=== PATIENT | female | born 1950 | race Caucasian/White ===

== ENCOUNTER → 2017-12-11 | Outpatient (CLI) | payer MEDICARE, OTHER | LOC: M PAIN 09:15 | DX: M79.1 Myalgia (principal); M54.5 Low back pain; M47.816 Spondylosis without myelopathy or radiculopathy, lumbar region; M47.814 Spondylosis without myelopathy or radiculopathy, thoracic region; E11.9 Type 2 diabetes mellitus without complications; I10 Essential (primary) hypertension; E78.00 Pure hypercholesterolemia, unspecified; M19.90 Unspecified osteoarthritis, unspecified site; Z79.84 Long term (current) use of oral hypoglycemic drugs; Z79.899 Other long term (current) drug therapy; Z91.013 Allergy to seafood; Z87.891 Personal history of nicotine dependence | CPT/HCPCS: G0463 ==

== ENCOUNTER → 2017-12-18 | Outpatient (CLI) | payer MEDICARE, OTHER ==
[~2017-12-18] MED LIST: BUPIVACAINE HCL 0.25% 10 ML VIAL As Ordered; BUPIVACAINE HCL 0.25% 30 ML VIAL As Ordered; TRIAMCINOLONE ACETONIDE SUSP 40 MG/ML VIAL (J3301) As Ordered
== END ==
LOC: M PAIN 11:30
DX: G89.29 Other chronic pain (principal); M79.1 Myalgia; I10 Essential (primary) hypertension; E78.00 Pure hypercholesterolemia, unspecified; E11.9 Type 2 diabetes mellitus without complications; Z79.84 Long term (current) use of oral hypoglycemic drugs; Z79.899 Other long term (current) drug therapy; Z91.013 Allergy to seafood; Z90.710 Acquired absence of both cervix and uterus; Z87.891 Personal history of nicotine dependence
CPT/HCPCS: J3301

== ENCOUNTER → 2017-12-27 | Outpatient (CLI) | payer MEDICARE, OTHER | LOC: M PAIN 10:30 | DX: M47.27 Other spondylosis with radiculopathy, lumbosacral region (principal); E11.9 Type 2 diabetes mellitus without complications; I10 Essential (primary) hypertension; E78.00 Pure hypercholesterolemia, unspecified; M19.90 Unspecified osteoarthritis, unspecified site; Z91.013 Allergy to seafood; E66.01 Morbid (severe) obesity due to excess calories; Z68.41 Body mass index [BMI] 40.0-44.9, adult; Z79.899 Other long term (current) drug therapy; Z87.891 Personal history of nicotine dependence | CPT/HCPCS: G0463 ==

== ENCOUNTER → 2018-01-15 | Outpatient (CLI) | payer MEDICARE, OTHER ==
[~2018-01-15] MED LIST changes: -BUPIVACAINE HCL 0.25% 10 ML VIAL As Ordered; +ISOVUE-M 300 61% 15ML VIAL (Q9967) As Ordered; +LIDOCAINE 1% SDV INJ 30 ML VIAL As Ordered
== END ==
LOC: M PAIN 08:30
DX: G89.29 Other chronic pain (principal); M47.816 Spondylosis without myelopathy or radiculopathy, lumbar region; M47.817 Spondylosis without myelopathy or radiculopathy, lumbosacral region; E11.9 Type 2 diabetes mellitus without complications; I10 Essential (primary) hypertension; E78.00 Pure hypercholesterolemia, unspecified; M19.90 Unspecified osteoarthritis, unspecified site; Z79.899 Other long term (current) drug therapy; Z91.013 Allergy to seafood; Z87.891 Personal history of nicotine dependence
CPT/HCPCS: J3301

== ENCOUNTER → 2018-01-29 | Outpatient (CLI) | payer MEDICARE, OTHER | LOC: M PAIN 09:00 | DX: M47.27 Other spondylosis with radiculopathy, lumbosacral region (principal); I10 Essential (primary) hypertension; E78.00 Pure hypercholesterolemia, unspecified; E11.9 Type 2 diabetes mellitus without complications; M19.90 Unspecified osteoarthritis, unspecified site; Z87.891 Personal history of nicotine dependence; Z79.899 Other long term (current) drug therapy; Z79.84 Long term (current) use of oral hypoglycemic drugs; Z91.013 Allergy to seafood | CPT/HCPCS: G0463 ==

== ENCOUNTER → 2018-04-02 | Outpatient (CLI) | payer MEDICARE, OTHER ==
[~2018-04-02] MED LIST changes: +ATEN25TA PO; +ATOR1TAB19 PO; -BUPIVACAINE HCL 0.25% 30 ML VIAL As Ordered; +FELO5TAB PO; +GLIM2TAB PO; -ISOVUE-M 300 61% 15ML VIAL (Q9967) As Ordered; -LIDOCAINE 1% SDV INJ 30 ML VIAL As Ordered; +LISI20TA PO; +MELO7.5T7 PO; +NATE120T4 PO; +OMEP20CA3 PO; -TRIAMCINOLONE ACETONIDE SUSP 40 MG/ML VIAL (J3301) As Ordered
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
== END ==
LOC: M PAIN 09:30
PROVIDERS: ATTEND Nurse Practitioner Family
DX: M47.27 Other spondylosis with radiculopathy, lumbosacral region (principal); G89.29 Other chronic pain; E11.9 Type 2 diabetes mellitus without complications; I12.9 Hypertensive chronic kidney disease with stage 1 through stage 4 chronic kidney disease, or unspecified chronic kidney disease; E78.00 Pure hypercholesterolemia, unspecified; M19.90 Unspecified osteoarthritis, unspecified site; E66.01 Morbid (severe) obesity due to excess calories; Z68.41 Body mass index [BMI] 40.0-44.9, adult; Z79.899 Other long term (current) drug therapy; Z91.013 Allergy to seafood; Z87.891 Personal history of nicotine dependence

== ENCOUNTER → 2018-07-31 | Outpatient (CLI) | payer MEDICARE, OTHER ==
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
== END ==
LOC: M PAIN 08:30
PROVIDERS: ATTEND Nurse Practitioner Family
DX: M48.061 Spinal stenosis, lumbar region without neurogenic claudication (principal); G89.29 Other chronic pain; I10 Essential (primary) hypertension; E78.00 Pure hypercholesterolemia, unspecified; E11.9 Type 2 diabetes mellitus without complications; M19.90 Unspecified osteoarthritis, unspecified site; Z87.891 Personal history of nicotine dependence; Z91.013 Allergy to seafood; E66.01 Morbid (severe) obesity due to excess calories; Z68.41 Body mass index [BMI] 40.0-44.9, adult; Z79.1 Long term (current) use of non-steroidal anti-inflammatories (NSAID); Z79.84 Long term (current) use of oral hypoglycemic drugs; Z79.899 Other long term (current) drug therapy

== ENCOUNTER → 2018-08-05 | Outpatient (CLI) | payer OTHER, MEDICARE ==
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
== END ==
LOC: M PAIN 09:00
PROVIDERS: ATTEND Nurse Practitioner Family
DX: M79.12 Myalgia of auxiliary muscles, head and neck (principal); G89.29 Other chronic pain; E11.9 Type 2 diabetes mellitus without complications; I10 Essential (primary) hypertension; E78.00 Pure hypercholesterolemia, unspecified; M19.90 Unspecified osteoarthritis, unspecified site; E66.01 Morbid (severe) obesity due to excess calories; Z68.41 Body mass index [BMI] 40.0-44.9, adult; Z79.899 Other long term (current) drug therapy; Z91.013 Allergy to seafood; Z87.891 Personal history of nicotine dependence; Z86.19 Personal history of other infectious and parasitic diseases

== ENCOUNTER → 2018-09-09 | Outpatient (CLI) | payer OTHER, MEDICARE ==
[~2018-09-09] MED LIST changes: +BUPIVACAINE HCL 0.25% 30 ML VIAL As Ordered ONE; +ISOVUE-M 300 61% 15ML VIAL (Q9967) As Ordered ONE; +LIDOCAINE 1% SDV INJ 30 ML VIAL As Ordered ONE; -OMEP20CA3 PO; +OMEP20CA4 PO; +TRIAMCINOLONE ACETONIDE SUSP 40 MG/ML VIAL (J3301) As Ordered ONE
--- NOTE | 2018-09-09 12:11 | REP ---
C-ARM VIEWS, LUMBAR SPINE: CLINICAL HISTORY: Pain . 4 C-arm views of the lumbar spine are performed during facet injection by Dr. Martines. [place] are seen along the lower facets and a small amount of contrast is injected. 32 seconds fluoroscopy time utilized. Electronically Signed by Aime English MD 09/09/2018 07:34 P
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
== END ==
LOC: M PAIN 10:45
PROVIDERS: ATTEND Anesthesiology
DX: M47.816 Spondylosis without myelopathy or radiculopathy, lumbar region (principal); M47.817 Spondylosis without myelopathy or radiculopathy, lumbosacral region; I10 Essential (primary) hypertension; E78.00 Pure hypercholesterolemia, unspecified; E11.9 Type 2 diabetes mellitus without complications; M19.90 Unspecified osteoarthritis, unspecified site; Z98.41 Cataract extraction status, right eye; Z98.42 Cataract extraction status, left eye; Z87.891 Personal history of nicotine dependence; Z79.1 Long term (current) use of non-steroidal anti-inflammatories (NSAID); Z79.891 Long term (current) use of opiate analgesic; Z79.899 Other long term (current) drug therapy; Z91.013 Allergy to seafood
CPT/HCPCS: 64493; 64494; J3301; Q9967

== ENCOUNTER → 2018-09-23 | Outpatient (CLI) | payer OTHER ==
[~2018-09-23] MED LIST changes: +BUPIVACAINE HCL 0.25% 10 ML VIAL As Ordered ONE; -ISOVUE-M 300 61% 15ML VIAL (Q9967) As Ordered ONE; -LIDOCAINE 1% SDV INJ 30 ML VIAL As Ordered ONE; +OMEP20CA3 PO; -OMEP20CA4 PO
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
== END ==
LOC: M PAIN 11:15
PROVIDERS: ATTEND Anesthesiology
DX: M79.18 Myalgia, other site (principal); I10 Essential (primary) hypertension; E78.00 Pure hypercholesterolemia, unspecified; E11.9 Type 2 diabetes mellitus without complications; M19.90 Unspecified osteoarthritis, unspecified site; M47.816 Spondylosis without myelopathy or radiculopathy, lumbar region; M47.814 Spondylosis without myelopathy or radiculopathy, thoracic region; G89.29 Other chronic pain; Z98.41 Cataract extraction status, right eye; Z98.42 Cataract extraction status, left eye; Z79.891 Long term (current) use of opiate analgesic; Z79.899 Other long term (current) drug therapy; Z91.013 Allergy to seafood
CPT/HCPCS: 20552; J3301

== ENCOUNTER → 2018-11-12 | Outpatient (CLI) | payer OTHER ==
[~2018-11-12] MED LIST changes: -BUPIVACAINE HCL 0.25% 10 ML VIAL As Ordered ONE; -BUPIVACAINE HCL 0.25% 30 ML VIAL As Ordered ONE; -LISI20TA PO; +LISI20TA18 PO; -OMEP20CA3 PO; +OMEP20CA4 PO; -TRIAMCINOLONE ACETONIDE SUSP 40 MG/ML VIAL (J3301) As Ordered ONE
== END ==
LOC: M PAIN 09:45
PROVIDERS: ATTEND Nurse Practitioner Family
DX: M79.18 Myalgia, other site (principal); I10 Essential (primary) hypertension; E78.00 Pure hypercholesterolemia, unspecified; E11.9 Type 2 diabetes mellitus without complications; M19.90 Unspecified osteoarthritis, unspecified site; Z87.891 Personal history of nicotine dependence; Z91.013 Allergy to seafood; E66.01 Morbid (severe) obesity due to excess calories; Z68.41 Body mass index [BMI] 40.0-44.9, adult; Z79.899 Other long term (current) drug therapy

== ENCOUNTER → 2018-11-25 | Outpatient (CLI) | payer MEDICARE, OTHER ==
[~2018-11-25] MED LIST changes: +BUPIVACAINE HCL 0.25% 30 ML VIAL As Ordered ONE; -FELO5TAB PO; +FELO5TAB26 PO; -GLIM2TAB PO; +GLIM2TAB4 PO; +ISOVUE-M 200 41% 20ML VIAL (Q9966) As Ordered ONE; +LIDOCAINE 1% SDV INJ 30 ML VIAL As Ordered ONE; -LISI20TA18 PO; +LISI20TA19 PO; +OMEP1CAP73 PO; -OMEP20CA4 PO
--- NOTE | 2018-11-25 18:52 | REP ---
FLUOROSCOPIC GUIDANCE FOR BILATERAL LUMBAR FACET BLOCK: 11/25/2018. Clinical history: Low back pain. Findings: Two views from C-arm fluoroscopy utilized by Dr. Miller of the pain clinic for this procedure. Single image for each projection showed needles at the three lowermost lumbar facet joints. Fluoroscopy time: 31 seconds. Electronically Signed by Gerardo Bonilla MD 11/25/2018 07:47 P
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
== END ==
LOC: M PAIN 10:00
PROVIDERS: ATTEND Anesthesiology
DX: G89.29 Other chronic pain (principal); M47.816 Spondylosis without myelopathy or radiculopathy, lumbar region; M47.817 Spondylosis without myelopathy or radiculopathy, lumbosacral region; M54.5 Low back pain; I10 Essential (primary) hypertension; Z79.899 Other long term (current) drug therapy; Z87.891 Personal history of nicotine dependence; Z91.013 Allergy to seafood
CPT/HCPCS: 64493; 64494; Q9966

== ENCOUNTER → 2018-12-12 | Outpatient (CLI) | payer MEDICARE, OTHER ==
[~2018-12-12] MED LIST changes: -BUPIVACAINE HCL 0.25% 30 ML VIAL As Ordered ONE; +FELO5TAB PO; -FELO5TAB26 PO; +GLIM2TAB PO; -GLIM2TAB4 PO; -ISOVUE-M 200 41% 20ML VIAL (Q9966) As Ordered ONE; -LIDOCAINE 1% SDV INJ 30 ML VIAL As Ordered ONE; -OMEP1CAP73 PO; +OMEP20CA4 PO
--- NOTE | 2018-12-27 01:59 | ECWPNPC ---
PATIENT NAME: ATN DIGGS : 1950 GENDER: FEMALE VISIT DATE: 12/12/2018 DISCHARGE DATE: 12/12/18 1103 VISIT LOCKED DATE TIME: PHYSICIAN: KAYLEE ARMSTRONG RESOURCE: KAYLEE ARMSTRONG REASON FOR APPOINTMENT 1. MEDICARE, POST PROCEDURE HISTORY OF PRESENT ILLNESS HISTORY OF PRESENT ILLNESS: HERE FOR F/U OF CHRONIC LBP.HAD BILAT L4/5-L5/S1 DIAGNOSTIC FACET BLOCK ON 11/25/18.REPORTING SIGNIFICANT REDUCTION IN PAIN,>80 % X10 HRS THEN PAIN RETURNED TO BASELINE.RATING PAIN VAS 5/10.USING TRAMADOL INFREQUENTLY FOR SEVERE PAIN. PAIN THE PATIENT DESCRIBES THE PAIN... THE PATIENT DESCRIBES THE PAIN... THE PATIENT DESCRIBES THE PAIN... FALL RISK SCREENING: SCREENING :NO FALLS REPORTED IN THE LAST YEAR CURRENT MEDICATIONS TAKING OMEPRAZOLE 20 MG CAPSULE DELAYED RELEASE 1 CAPSULE ORALLY ONCE A DAY TAKING GLIMEPIRIDE 4 MG TABLET 2 TABLET ORALLY DAILY, NOTES: 11/24/18 TAKING GABAPENTIN 300 MG CAPSULE 1 CAPSULE ORALLY TWICE DAILY TAKING ATORVASTATIN CALCIUM 10 MG TABLET 1 TABLET ORALLY BEFORE BEDTIME TAKING LABETALOL HCL 200 MG TABLET 1 TABLET ORALLY TWICE A DAY TAKING VALSARTAN-HYDROCHLOROTHIAZIDE 320-25 MG TABLET 1 TABLET ORALLY ONCE A DAY NOT-TAKING MELOXICAM 7.5 MG TABLET 1 TABLET ORALLY BID NOT-TAKING LOSARTAN POTASSIUM 100 MG TABLET 1 TABLET ORALLY BEFORE BEDTIME NOT-TAKING FELODIPINE ER 5 MG TABLET EXTENDED RELEASE 24 HOUR 1 TABLET ORALLY BEFORE BEDTIME NOT-TAKING TIZANIDINE HCL 4 MG TABLET 1 TABLET ORALLY BID NOT-TAKING ATENOLOL 25 MG TABLET 1 TABLET ORALLY ONCE A DAY NOT-TAKING PRILOSEC 20 MG CAPSULE DELAYED RELEASE 1 CAPSULE ORALLY ONCE A DAY NOT-TAKING TRAMADOL HCL 50 MG TABLET 1 TO 2 TAB ORALLY Q6H PRN MDD2 MEDICATION LIST REVIEWED AND RECONCILED WITH THE PATIENT PAST MEDICAL HISTORY HYPERTENSION HIGH CHOLESTEROL DIABETES ARTHRITIS SEPSIS - BLOOD SPONDYLOSIS OF THORACIC AND LUMBAR REGION CARPAL TUNNEL SYNDROME BILATERAL BILATERAL CATARACTS FLUID ON LEFT OTHER CHRONIC PAIN TREMORS ALLERGIES SHRIMP (DIAGNOSTIC): ANAPHYLAXIS - ALLERGY - ONSET DATE 09/23/2018 SURGICAL HISTORY HYSTERECTOMY 1987 SINUS RIGHT - BLOCKAGE 2016 RIGHT CARPAL TUNNEL SURGERY 2017 LEFT CARPAL TUNNEL SURGERY 2017 COLONOSCOPY WITH POLYP REMOVAL 2011 BILATERAL CATARACT REMOVAL WITH LENS IMPLANTS 2018 FAMILY HISTORY FATHER: 64 YRS, DIAGNOSED WITH UNSPECIFIED HEART DISEASE MOTHER: 63 YRS, UNSPECIFIED CEREBRAL ARTERY OCCLUSION WITH CEREBRAL INFARCTION 1 SON(S) , 2 DAUGHTER(S) - HEALTHY. SEVERAL SIBLINGS WITH HEART DISEASE AND CANCER - PT HAS 19 SIBLINGS TOTAL\\NSTATES DAUGHTER HAS CHRONIC BACK PAIN WELL. SOCIAL HISTORY GENERAL: TOBACCO USE ARE YOU A:FORMER SMOKER HOW LONG HAS IT BEEN SINCE YOU LAST SMOKED?> 10 YEARS EDUCATION LEVEL OF EDUCATION:HIGH SCHOOL 9TH GRADE DIET: REGULAR, CARBOHYDRATE CONTROLLED. LANGUAGE LANGUAGES SPOKEN: KHMER DOMESTIC VIOLENCE DO YOU FEEL SAFE IN YOUR ENVIRONMENT?YES NEW PATIENT PAIN DIARY PATIENT DESCRIBES PAIN :ACHING, HAVE IT ALL THE TIME RECREATIONAL DRUG USE DRUG USE?NO EXERCISE: NO REGULAR EXERCISE. 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 N/A HAS THE PATIENT BEEN EDUCATED REGARDING HIS/HER PLAN OF CARE?YES HAS THE PATIENT BEEN EDUCATED REGARDING PAIN, THE RISK FOR PAIN, THE IMPORTANCE OF EFFECTIVE PAIN MANAGEMENT, AND THE PAIN ASSESSMENT PROCESS?YES PLEASE DOCUMENT ANY ADDTIONAL DETAILS. ORIENTED TO [facility] LATEX QUESTIONNAIRE LATEX ALLERGY : HAVE YOU EVER DEVELOPED ANY TYPE OF REACTION AFTER HANDLING LATEX PRODUCTS SUCH RUBBER GLOVES, CONDOMS, DIAPHRAGMS, BALLOONS, SOCKS, OR UNDERWEAR?NO LATEX ALLERGY : HAVE YOU EVER DEVELOPED ANY TYPE OF REACTION DURING OR AFTER DENTAL APPOINTMENT, VAGINAL/RECTAL EXAMINATION, SURGICAL PROCEDURE, OR ANY OTHER EXPOSURE?NO LATEX RISK : HAVE YOU EVER HAD ANY DIFFICULTY BREATHING OR HIVES AFTER EATING OR HANDLING ANY FRUITS, OR VEGETABLES; SUCH KIWI, BANANAS, STONE FRUITS, OR CHESTNUTSNO LATEX RISK : DO YOU HAVE A PREVIOUS PERSONAL HISTORY OF MORE THAN NINE SURGERIES, SPINA BIFIDA, OR REPEATED CATHERIZATIONS? NO LATEX RISK : ARE YOU FREQUENTLY EXPOSED TO LATEX PRODUCTS IN YOUR OCCUPATION?NO DATE ASKED : 09/23/2018 CAFFEINE CAFFEINE USE?YES HOW OFTEN AND HOW MUCH? 2 CUPS PER DAY ADVANCE DIRECTIVE ADVANCE DIRECTIVE DISCUSSED WITH PATIENT:YES HCP IVETH RODRIGUES [phone] LATTER DAY LATTER DAY BUDDHIST MARITAL STATUS: . 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 REVIEWED WITH PATIENT 12/27/17 1023 JSREVIEWED WITH PATIENT 01/15/18 0904 LASREVIEWED WITH PATIENT 04/02/18 0919 JSREVIEWED WITH PT 08/05/18 0923 BV09/09/18 REVIEWED WITH PT. ADREVIEWED WITH PATIENT 12/12/18 1025 LASREVIEWED WITH PATIENT 11/12/18 0954 NLJ09/22/18 REVIEWED WITH PT. AD. HOSPITALIZATION/MAJOR DIAGNOSTIC PROCEDURE SURGERIES SEPSIS - BLOOD 04/2018 REVIEW OF SYSTEMS REVIEWED BY: PROVIDER: KAYLEE DOBBINS . CONSTITUTIONAL: ANY CHANGE IN YOUR MEDICAL CONDITION? NO . CHILLS NO . FEVER NO . INFECTION: DO YOU HAVE NEW INFECTIONS? NO . DO YOU HAVE HISTORY OF MRSA? NO . MUSCULOSKELETAL: ANY NEW PATTERNS OF PAIN OR NUMBNESS? NO . GASTROENTEROLOGY: ANY NEW CHANGE IN BOWEL CONTROL? NO . GENITOURINARY: ANY NEW CHANGE IN BLADDER CONTROL? NO . IS THERE A CHANCE YOU COULD BE ? NO . HEMATOLOGY/LYMPH: DO YOU TAKE ANY BLOOD THINNERS? (FOR EXAMPLE- COUMADIN, PLAVIX, AGGRENOX, PLATEL, PRADAXA, OR XARELTO) NO . WHEN WAS YOUR LAST DOSE? DATE: TIME: . NEUROLOGY: HAVE YOU FALLEN IN THE PAST 12 MONTHS? NO . ANY NEW EXTREMITY NUMBNESS OR WEAKNESS? NO . CARDIOLOGY: DO YOU HAVE A PACEMAKER OR DEFIBRILLATOR? NO . RESPIRATORY: HAVE YOU BEEN SICK IN THE PAST WEEK? PT REPORTS SHE HAD NAUSEA/VOMITING FOR A COUPLE OF DAYS, WENT TO ED, DIAGNOSED WITH STOMACH BUG AND GIVEN A PRESCRIPTION FOR ZOFRAN. NOW RESOLVED. . FEVER NO . FLU LIKE SYMPTOMS? NO . COUGH NO . INTEGUMENTARY: DO YOU HAVE ANY RASHES OR OPEN SORES? NO . ALLERGIC/IMMUNO: ARE YOU ALLERGIC TO IV DYE? NO . ANY NEW ALLERGIES? NO . PSYCHIATRIC: DO YOU HAVE THOUGHTS OF HURTING YOURSELF OR SOMEONE ELSE? NO . ARE YOU ABUSED, NEGLECTED, OR IN AN UNSAFE ENVIRONMENT? NO . ENDOCRINOLOGY: ARE YOU DIABETIC? YES . OTHER: DO YOU NEED ANY PRESCRIPTIONS? NO . IF YES, PLEASE LIST: ____ . ANY NEW PROBLEMS WITH YOUR MEDICATIONS? NO . WHEN DID YOU LAST EAT? ____ . WHEN DID YOU LAST DRINK? ____ . WHAT DID YOU LAST DRINK? ____ . NAME OF PERSON DRIVING YOU HOME? ____ . DO YOU HAVE ANY OTHER QUESTIONS OR CONCERNS NO . VITAL SIGNS WT 254.0 LBS, HT 65 IN, BMI 42.26 INDEX, BP 128/62 MM HG, HR 56 /MIN, RR 18 /MIN, TEMP 96.0 F, OXYGEN SAT % 98%, SAFE IN ENV? (Y/N) YES, NA INITIALS AW 1010, REVIEWED BY: ARAVIND. EXAMINATION GENERAL EXAMINATION: GENERAL AWAKE,ALERT ,PLEAASANT . PSYCH AFFECT NORMAL . LUNGS: LUNG GRAY ARE CLEAR TO AUSCULTATION BILATERALLY. GOOD MOVEMENT OF AIR . HEART: S1, S2 IN A REGULAR RATE AND RHYTHM. NO SIGNIFICANT MURMURS, RUBS OR GALLOPS NOTED . LUMBAR SACRAL SPINEPALPATION:TENDER OVER BILAT. L4/5-L5/S1 LUMBAR FACETS WITH FACET LOADING.. DIAGNOSTIC TESTS REVIEWED MRI L/S SPINE-10/14/18. ASSESSMENTS SPONDYLOSIS OF LUMBOSACRAL REGION WITHOUT MYELOPATHY OR RADICULOPATHY - M47.817 (PRIMARY) TREATMENT SPONDYLOSIS OF LUMBOSACRAL REGION WITHOUT MYELOPATHY OR RADICULOPATHY NOTES: L4/5-L5/S1 LFB DX RIGHT. PREVENTIVE MEDICINE PAIN CLINIC TEACHING: PROCEDURE TEACHING DIAGNOSTIC FACET BLOCK PROCEDURE REVIEWED WITH PATIENT. PRE PROCEDURE INSTRUCTIONS REVIEWED WITH PATIENT. PATIENT VERBALIZES UNDERSTANDING. PROCEDURE CODES FA211 ESTABILISHED PATIENT [facility] FACILITY CHARGE DISPOSITION & COMMUNICATION FOLLOW UP POST (REASON: L4/5-L5/S1 LFB DX RIGHT) ELECTRONICALLY SIGNED BY SHILPI LOONEY ON 12/26/2018 AT 01:53 PM EDT DISCLAIMER : THIS IS A VISIT SUMMARY EXTRACTED FROM THE [employer] CHART. IT IS NOT A COPY OF THE [employer] PROGRESS NOTE. SIDDHARTHA
== END ==
LOC: M PAIN 10:00
PROVIDERS: ATTEND Nurse Practitioner Family
DX: M47.817 Spondylosis without myelopathy or radiculopathy, lumbosacral region (principal); I10 Essential (primary) hypertension; E78.00 Pure hypercholesterolemia, unspecified; E11.9 Type 2 diabetes mellitus without complications; M19.90 Unspecified osteoarthritis, unspecified site; R25.1 Tremor, unspecified; Z87.891 Personal history of nicotine dependence; Z91.013 Allergy to seafood; E66.01 Morbid (severe) obesity due to excess calories; Z68.41 Body mass index [BMI] 40.0-44.9, adult; Z79.899 Other long term (current) drug therapy

== ENCOUNTER → 2019-01-20 | Outpatient (CLI) | payer MEDICARE, OTHER ==
[~2019-01-20] MED LIST changes: +BUPIVACAINE HCL 0.25% 30 ML VIAL As Ordered ONE; -GLIM2TAB PO; +GLIM2TAB2 PO; +ISOVUE-M 300 61% 15ML VIAL (Q9967) As Ordered ONE; +LIDOCAINE 1% SDV INJ 30 ML VIAL As Ordered ONE
--- NOTE | 2019-01-20 12:08 | REP ---
C-ARM VIEWS LOWER LUMBAR SPINE: CLINICAL HISTORY: Pain. Two C-arm views lower lumbar spine performed. Facet injection performed by Dr. Martines. [place] are seen along the right lower lumbar facets. Small amount of contrast is injected. Fluoroscopy time: 24 seconds. Electronically Signed by Aime English MD 01/21/2019 11:46 A
--- NOTE | 2019-01-24 23:15 | ECWPNPC ---
PATIENT NAME: ANT DIGGS : 1950 GENDER: FEMALE VISIT DATE: 01/20/2019 DISCHARGE DATE: 01/20/19 1022 VISIT LOCKED DATE TIME: PHYSICIAN: KUNAL MCCARTHY MD RESOURCE: KUNAL MCCARTHY MD REASON FOR APPOINTMENT 1. L4/5-L5/S1 LFB DX RIGHT HISTORY OF PRESENT ILLNESS HISTORY OF PRESENT ILLNESS: PAIN THE PATIENT DESCRIBES THE PAIN... FALL RISK SCREENING: SCREENING :NO FALLS REPORTED IN THE LAST YEAR CURRENT MEDICATIONS TAKING OMEPRAZOLE 20 MG CAPSULE DELAYED RELEASE 1 CAPSULE ORALLY ONCE A DAY, NOTES: 01/20/19 06 TAKING GLIMEPIRIDE 4 MG TABLET 2 TABLET ORALLY DAILY, NOTES: 01/19/19 TAKING GABAPENTIN 300 MG CAPSULE 1 CAPSULE ORALLY TWICE DAILY, NOTES: 01/20/19 06 TAKING ATORVASTATIN CALCIUM 10 MG TABLET 1 TABLET ORALLY BEFORE BEDTIME, NOTES: 01/19/19 1900 TAKING LABETALOL HCL 200 MG TABLET 1 TABLET ORALLY TWICE A DAY, NOTES: 01/20/19 0600 TAKING VALSARTAN-HYDROCHLOROTHIAZIDE 320-25 MG TABLET 1 TABLET ORALLY ONCE A DAY, NOTES: 01/20/19 0600 NOT-TAKING MELOXICAM 7.5 MG TABLET 1 TABLET ORALLY BID NOT-TAKING LOSARTAN POTASSIUM 100 MG TABLET 1 TABLET ORALLY BEFORE BEDTIME NOT-TAKING FELODIPINE ER 5 MG TABLET EXTENDED RELEASE 24 HOUR 1 TABLET ORALLY BEFORE BEDTIME NOT-TAKING TIZANIDINE HCL 4 MG TABLET 1 TABLET ORALLY BID NOT-TAKING ATENOLOL 25 MG TABLET 1 TABLET ORALLY ONCE A DAY NOT-TAKING PRILOSEC 20 MG CAPSULE DELAYED RELEASE 1 CAPSULE ORALLY ONCE A DAY NOT-TAKING TRAMADOL HCL 50 MG TABLET 1 TO 2 TAB ORALLY Q6H PRN MDD2 MEDICATION LIST REVIEWED AND RECONCILED WITH THE PATIENT PAST MEDICAL HISTORY HYPERTENSION HIGH CHOLESTEROL DIABETES ARTHRITIS SEPSIS - BLOOD SPONDYLOSIS OF THORACIC AND LUMBAR REGION CARPAL TUNNEL SYNDROME BILATERAL BILATERAL CATARACTS FLUID ON LEFT OTHER CHRONIC PAIN TREMORS ALLERGIES SHRIMP (DIAGNOSTIC): ANAPHYLAXIS - ALLERGY - ONSET DATE 09/23/2018 SURGICAL HISTORY HYSTERECTOMY 1987 SINUS RIGHT - BLOCKAGE 2016 RIGHT CARPAL TUNNEL SURGERY 2017 LEFT CARPAL TUNNEL SURGERY 2017 COLONOSCOPY WITH POLYP REMOVAL 2011 BILATERAL CATARACT REMOVAL WITH LENS IMPLANTS 2018 FAMILY HISTORY FATHER: 64 YRS, DIAGNOSED WITH UNSPECIFIED HEART DISEASE MOTHER: 63 YRS, UNSPECIFIED CEREBRAL ARTERY OCCLUSION WITH CEREBRAL INFARCTION 1 SON(S) , 2 DAUGHTER(S) - HEALTHY. SEVERAL SIBLINGS WITH HEART DISEASE AND CANCER - PT HAS 19 SIBLINGS TOTAL\\NSTATES DAUGHTER HAS CHRONIC BACK PAIN WELL. SOCIAL HISTORY GENERAL: TOBACCO USE ARE YOU A:FORMER SMOKER HOW LONG HAS IT BEEN SINCE YOU LAST SMOKED?> 10 YEARS EDUCATION LEVEL OF EDUCATION:HIGH SCHOOL 9TH GRADE DIET: REGULAR, CARBOHYDRATE CONTROLLED. LANGUAGE LANGUAGES SPOKEN: [place] RICAN DOMESTIC VIOLENCE DO YOU FEEL SAFE IN YOUR ENVIRONMENT?YES NEW PATIENT PAIN DIARY PATIENT DESCRIBES PAIN :ACHING, HAVE IT ALL THE TIME RECREATIONAL DRUG USE DRUG USE?NO EXERCISE: NO REGULAR EXERCISE. 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 N/A HAS THE PATIENT BEEN EDUCATED REGARDING HIS/HER PLAN OF CARE?YES HAS THE PATIENT BEEN EDUCATED REGARDING PAIN, THE RISK FOR PAIN, THE IMPORTANCE OF EFFECTIVE PAIN MANAGEMENT, AND THE PAIN ASSESSMENT PROCESS?YES PLEASE DOCUMENT ANY ADDTIONAL DETAILS. ORIENTED TO [facility] LATEX QUESTIONNAIRE LATEX ALLERGY : HAVE YOU EVER DEVELOPED ANY TYPE OF REACTION AFTER HANDLING LATEX PRODUCTS SUCH RUBBER GLOVES, CONDOMS, DIAPHRAGMS, BALLOONS, SOCKS, OR UNDERWEAR?NO LATEX ALLERGY : HAVE YOU EVER DEVELOPED ANY TYPE OF REACTION DURING OR AFTER DENTAL APPOINTMENT, VAGINAL/RECTAL EXAMINATION, SURGICAL PROCEDURE, OR ANY OTHER EXPOSURE?NO DATE ASKED : 09/23/2018 LATEX RISK : HAVE YOU EVER HAD ANY DIFFICULTY BREATHING OR HIVES AFTER EATING OR HANDLING ANY FRUITS, OR VEGETABLES; SUCH KIWI, BANANAS, STONE FRUITS, OR CHESTNUTSNO LATEX RISK : DO YOU HAVE A PREVIOUS PERSONAL HISTORY OF MORE THAN NINE SURGERIES, SPINA BIFIDA, OR REPEATED CATHERIZATIONS? NO LATEX RISK : ARE YOU FREQUENTLY EXPOSED TO LATEX PRODUCTS IN YOUR OCCUPATION?NO CAFFEINE CAFFEINE USE?YES HOW OFTEN AND HOW MUCH? 2 CUPS PER DAY ADVANCE DIRECTIVE ADVANCE DIRECTIVE DISCUSSED WITH PATIENT:YES HCP IVETH RODRIGUES [phone] [facility] M[facility]ORO[facility]RI[facility] MARITAL STATUS: . 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 REVIEWED WITH PATIENT 12/27/17 1023 JSREVIEWED WITH PATIENT 01/15/18 0904 LASREVIEWED WITH PATIENT 04/02/18 0919 JSREVIEWED WITH PT 08/05/18 0923 BV09/09/18 REVIEWED WITH PT. ADREVIWED WITH PATIENT 01/20/19 0848 BVREVIEWED WITH PATIENT 12/12/18 1025 LASREVIEWED WITH PATIENT 11/12/18 0954 NLJ09/22/18 REVIEWED WITH PT. AD. HOSPITALIZATION/MAJOR DIAGNOSTIC PROCEDURE SURGERIES SEPSIS - BLOOD 04/2018 REVIEW OF SYSTEMS REVIEWED BY: PROVIDER: . CONSTITUTIONAL: ANY CHANGE IN YOUR MEDICAL CONDITION? NO . CHILLS NO . FEVER NO . INFECTION: DO YOU HAVE NEW INFECTIONS? NO . DO YOU HAVE HISTORY OF MRSA? NO . MUSCULOSKELETAL: ANY NEW PATTERNS OF PAIN OR NUMBNESS? NO . GASTROENTEROLOGY: ANY NEW CHANGE IN BOWEL CONTROL? NO . GENITOURINARY: ANY NEW CHANGE IN BLADDER CONTROL? NO . IS THERE A CHANCE YOU COULD BE ? NO . HEMATOLOGY/LYMPH: DO YOU TAKE ANY BLOOD THINNERS? (FOR EXAMPLE- COUMADIN, PLAVIX, AGGRENOX, PLATEL, PRADAXA, OR XARELTO) NO . WHEN WAS YOUR LAST DOSE? DATE: TIME: . NEUROLOGY: HAVE YOU FALLEN IN THE PAST 12 MONTHS? NO . ANY NEW EXTREMITY NUMBNESS OR WEAKNESS? NO . CARDIOLOGY: DO YOU HAVE A PACEMAKER OR DEFIBRILLATOR? NO . RESPIRATORY: HAVE YOU BEEN SICK IN THE PAST WEEK? NO . FEVER NO . FLU LIKE SYMPTOMS? NO . COUGH NO . INTEGUMENTARY: DO YOU HAVE ANY RASHES OR OPEN SORES? NO . ALLERGIC/IMMUNO: ARE YOU ALLERGIC TO IV DYE? NO . ANY NEW ALLERGIES? NO . PSYCHIATRIC: DO YOU HAVE THOUGHTS OF HURTING YOURSELF OR SOMEONE ELSE? NO . ARE YOU ABUSED, NEGLECTED, OR IN AN UNSAFE ENVIRONMENT? NO . ENDOCRINOLOGY: ARE YOU DIABETIC? YES . OTHER: DO YOU NEED ANY PRESCRIPTIONS? NO . IF YES, PLEASE LIST: ____ . ANY NEW PROBLEMS WITH YOUR MEDICATIONS? NO . WHEN DID YOU LAST EAT? 01/19/19 1800 . WHEN DID YOU LAST DRINK? 01/19/19 1800 . WHAT DID YOU LAST DRINK? WATER . NAME OF PERSON DRIVING YOU HOME? ROHAN . DO YOU HAVE ANY OTHER QUESTIONS OR CONCERNS NO . VITAL SIGNS WT 252.2 LBS, HT 65 IN, BMI 41.96 INDEX, BP 128/60 MM HG, HR 67 /MIN, RR 18 /MIN, TEMP 96.9 F, OXYGEN SAT % 95%, NA INITIALS SC 08:40, REVIEWED BY: BV. ASSESSMENTS SPONDYLOSIS WITHOUT MYELOPATHY OR RADICULOPATHY, LUMBAR REGION - M47.816 (PRIMARY) SPONDYLOSIS OF LUMBOSACRAL REGION WITHOUT MYELOPATHY OR RADICULOPATHY - M47.817 TREATMENT SPONDYLOSIS OF LUMBOSACRAL REGION WITHOUT MYELOPATHY OR RADICULOPATHY SMC FACET BLOCK (PAIN)[id number] PROCEDURES PN LUMBAR FACET BLOCK DIAGNOSTIC PRE PROCEDURE DIAGNOSIS LUMBAR SPONDYLOSIS, LUMBOSACRAL SPONDYLOSIS POST PROCEDURE DIAGNOSIS LUMBAR SPONDYLOSIS, LUMBOSACRAL SPONDYLOSIS PROCEDURE RIGHT L4-L5 AND RIGHT L5-S1 FACET BLOCK DIAGNOSTIC NUMBER [address] KUNAL MCCARTHY DIRECTOR OF CORPORATE STRATEGY NONE ANESTHESIA LOCAL PRE PROCEDURE NOTE THE PATIENT WITH HISTORY OF CHRONIC LOW BACK PAIN. I EVALUATED THE PATIENT AND REVIEWED THE CHART. I WENT OVER THE RISKS, ALTERNATIVES, AND BENEFITS ASSOCIATED WITH THIS PROCEDURE. THE PATIENT WOULD LIKE TO PROCEED AND GAVE CONSENT TO PERFORM THE PROCEDURE. AGREED WITH THE PATIENT WE ARE DOING THIS PROCEDURE TO DETERMINE IF THE PATIENT IS A CANDIDATE FOR A RADIOFREQUENCY ABLATION OF THE FACETS JOINTS. THE PATIENT DENIES UNEXPLAINABLE WEIGHT LOSS, FEVER, CHILLS, OR NEW CHANGES IN URINARY OR BOWEL CONTROL DESCRIPTION OF PROCEDURE THE PATIENT WAS BROUGHT TO THE PROCEDURE ROOM AND PLACED IN THE PRONE POSITION. THE LUMBOSACRAL AREA WAS CLEANED WITH CHLORAPREP SOLUTION AND DRAPED ASEPTICALLY. THE PROCEDURE WAS DONE UNDER STERILE CONDITIONS. I CHECKED LATERALITY AND THE LEVEL WHERE THE PROCEDURE WAS GOING TO BE PERFORMED WITH THE PATIENT AND THE SUPPORTING STAFF AT THE MOMENT OF THE TIME OUT IN THE PROCEDURE ROOM. UNDER FLUOROSCOPIC GUIDANCE, TARGETS WERE SELECTED AT THE INTERSECTION OF THE RIGHT TRANSVERSE PROCESS OF L4, L5 AND ALA OF S1 WITH ITS RESPECTIVE SUPERIOR ARTICULAR PROCESS. LIDOCAINE WAS USED TO NUMB THE SKIN AND THE SUBCUTANEOUS TISSUE BELOW IT. SPINAL NEEDLE, 22-GAUGE WAS ADVANCED UNDER FLUOROSCOPIC GUIDANCE AND FOLLOWING PATIENT FEEDBACK UNTIL THE TARGETS WERE REACHED. POSITION OF THE NEEDLES WAS VERIFIED WITH AP AND LATERAL VIEWS. AFTER PROPER POSITION OF THE NEEDLES WAS ACHIEVED, ISOVUE-M DYE 30% 0.1 ML WAS INJECTED AT EACH SITE SHOWING ADEQUATE SPREAD OF THE DYE. THEN A SOLUTION OF 0.4 ML OF BUPIVACAINE 0.25% WAS INJECTED AT EACH SITE. THERE WAS NO EVIDENCE OF BLOOD, PARESTHESIA OR CEREBROSPINAL FLUID DURING THE PROCEDURE. THE PATIENT WAS SENT TO THE RECOVERY ROOM. THE PATIENT WAS MOVING THE EXTREMITIES AND DOING WELL. THERE WAS NO COMPLICATION DURING THE PROCEDURE. FLUOROSCOPY TIME WAS 24 SECONDS POST PROCEDURE NOTE THE PATIENT WILL DOCUMENT HIS PAIN LEVEL AND RESPONSE TO THIS PROCEDURE EVERY 30 MINUTES. THE PATIENT WILL BE SEEN IN A FOLLOW UP IN THE NEXT FEW WEEKS. FURTHER DETERMINATION FOR HIS CASE WILL BE DONE AT THE NEXT VISIT. INSTRUCTIONS WERE GIVEN, QUESTIONS WERE ANSWERED, AND THE PATIENT EXPRESSED UNDERSTANDING AND AGREED WITH THE PLAN. I, TATY NARVAEZ, DOCUMENTED THE ABOVE INFORMATION ACTING A SCRIBE FOR DR. MCCARTHY. I HAVE REVIEWED THE ABOVE DOCUMENT, WRITTEN BY TATY NARVAEZ SCRIBE AND I VERIFY THAT IT IS ACCURATE. PROCEDURE CODES 10376 INJ PARAVERT F JNT L/S 1 LEV, MODIFIERS: [place] [address] INJ PARAVERT F JNT L/S 2 LEV, MODIFIERS: RT 6045F RADXPS IN END [id number] PXD DISPOSITION & COMMUNICATION FOLLOW UP 3 WEEKS ELECTRONICALLY SIGNED BY KUNAL MCCARTHY MD, MD ON 01/24/2019 AT 07:36 AM EDT DISCLAIMER : THIS IS A VISIT SUMMARY EXTRACTED FROM THE [employer] CHART. IT IS NOT A COPY OF THE [employer] PROGRESS NOTE. MTDD
== END ==
LOC: M PAIN 08:45
PROVIDERS: ATTEND Anesthesiology
DX: M47.816 Spondylosis without myelopathy or radiculopathy, lumbar region (principal); M47.817 Spondylosis without myelopathy or radiculopathy, lumbosacral region; I10 Essential (primary) hypertension; E78.00 Pure hypercholesterolemia, unspecified; E11.9 Type 2 diabetes mellitus without complications; M19.90 Unspecified osteoarthritis, unspecified site; M47.814 Spondylosis without myelopathy or radiculopathy, thoracic region; G89.29 Other chronic pain; R25.1 Tremor, unspecified; Z98.41 Cataract extraction status, right eye; Z98.42 Cataract extraction status, left eye; Z87.891 Personal history of nicotine dependence; Z91.013 Allergy to seafood; Z79.899 Other long term (current) drug therapy
CPT/HCPCS: 64493; 64494; Q9967

== ENCOUNTER → 2019-02-04 | Outpatient (CLI) | payer MEDICARE, OTHER ==
[~2019-02-04] MED LIST changes: -BUPIVACAINE HCL 0.25% 30 ML VIAL As Ordered ONE; -ISOVUE-M 300 61% 15ML VIAL (Q9967) As Ordered ONE; -LIDOCAINE 1% SDV INJ 30 ML VIAL As Ordered ONE
--- NOTE | 2019-02-20 02:05 | ECWPNPC ---
PATIENT NAME: ANT DIGGS : 1950 GENDER: FEMALE VISIT DATE: 02/04/2019 DISCHARGE DATE: 02/04/19 0939 VISIT LOCKED DATE TIME: PHYSICIAN: KAYLEE ARMSTRONG RESOURCE: KAYLEE ARMSTRONG REASON FOR APPOINTMENT 1. POST PROC HISTORY OF PRESENT ILLNESS HISTORY OF PRESENT ILLNESS: HERE FOR F/U OF CHRONIC LBP.HAD RIGHT L4/5-L5/S1 THERAPEUTIC FACET BLOCK #2 01/20/19.REPORTING SIGNIFICANT REDUCTION IN PAIN,>80 THEN PAIN GRADUALLY RETURNED TO BASELINE.RATING PAIN VAS 3/10.USING TRAMADOL INFREQUENTLY FOR SEVERE PAIN. PAIN THE PATIENT DESCRIBES THE PAIN... THE PATIENT DESCRIBES THE PAIN... THE PATIENT DESCRIBES THE PAIN... FALL RISK SCREENING: SCREENING :NO FALLS REPORTED IN THE LAST YEAR CURRENT MEDICATIONS TAKING OMEPRAZOLE 20 MG CAPSULE DELAYED RELEASE 1 CAPSULE ORALLY ONCE A DAY TAKING GLIMEPIRIDE 4 MG TABLET 2 TABLET ORALLY DAILY TAKING GABAPENTIN 300 MG CAPSULE 1 CAPSULE ORALLY TWICE DAILY TAKING ATORVASTATIN CALCIUM 10 MG TABLET 1 TABLET ORALLY BEFORE BEDTIME TAKING LABETALOL HCL 200 MG TABLET 1 TABLET ORALLY TWICE A DAY TAKING VALSARTAN-HYDROCHLOROTHIAZIDE 320-25 MG TABLET 1 TABLET ORALLY ONCE A DAY NOT-TAKING MELOXICAM 7.5 MG TABLET 1 TABLET ORALLY BID NOT-TAKING LOSARTAN POTASSIUM 100 MG TABLET 1 TABLET ORALLY BEFORE BEDTIME NOT-TAKING FELODIPINE ER 5 MG TABLET EXTENDED RELEASE 24 HOUR 1 TABLET ORALLY BEFORE BEDTIME NOT-TAKING TIZANIDINE HCL 4 MG TABLET 1 TABLET ORALLY BID NOT-TAKING ATENOLOL 25 MG TABLET 1 TABLET ORALLY ONCE A DAY NOT-TAKING PRILOSEC 20 MG CAPSULE DELAYED RELEASE 1 CAPSULE ORALLY ONCE A DAY NOT-TAKING TRAMADOL HCL 50 MG TABLET 1 TO 2 TAB ORALLY Q6H PRN MDD2 MEDICATION LIST REVIEWED AND RECONCILED WITH THE PATIENT PAST MEDICAL HISTORY HYPERTENSION HIGH CHOLESTEROL DIABETES ARTHRITIS SEPSIS - BLOOD SPONDYLOSIS OF THORACIC AND LUMBAR REGION CARPAL TUNNEL SYNDROME BILATERAL BILATERAL CATARACTS FLUID ON LEFT OTHER CHRONIC PAIN TREMORS ALLERGIES SHRIMP (DIAGNOSTIC): ANAPHYLAXIS - ALLERGY - ONSET DATE 09/23/2018 SURGICAL HISTORY HYSTERECTOMY 1987 SINUS RIGHT - BLOCKAGE 2016 RIGHT CARPAL TUNNEL SURGERY 2017 LEFT CARPAL TUNNEL SURGERY 2017 COLONOSCOPY WITH POLYP REMOVAL 2011 BILATERAL CATARACT REMOVAL WITH LENS IMPLANTS 2018 FAMILY HISTORY FATHER: 64 YRS, DIAGNOSED WITH UNSPECIFIED HEART DISEASE MOTHER: 63 YRS, UNSPECIFIED CEREBRAL ARTERY OCCLUSION WITH CEREBRAL INFARCTION 1 SON(S) , 2 DAUGHTER(S) - HEALTHY. SEVERAL SIBLINGS WITH HEART DISEASE AND CANCER - PT HAS 19 SIBLINGS TOTAL\\NSTATES DAUGHTER HAS CHRONIC BACK PAIN WELL. SOCIAL HISTORY GENERAL: TOBACCO USE ARE YOU A:FORMER SMOKER HOW LONG HAS IT BEEN SINCE YOU LAST SMOKED?> 10 YEARS EDUCATION LEVEL OF EDUCATION:HIGH SCHOOL 9TH GRADE DIET: REGULAR, CARBOHYDRATE CONTROLLED. LANGUAGE LANGUAGES SPOKEN: ROMANSH DOMESTIC VIOLENCE DO YOU FEEL SAFE IN YOUR ENVIRONMENT?YES NEW PATIENT PAIN DIARY PATIENT DESCRIBES PAIN :ACHING, HAVE IT ALL THE TIME RECREATIONAL DRUG USE DRUG USE?NO EXERCISE: NO REGULAR EXERCISE. LEARNING BARRIERS / SPECIAL NEEDS BARRIERS TO LEARNING?NO HEARING IMPAIRED?NO VISION IMPAIRED?YES COGNITIVELY IMPAIRED?NO :CORRECTIVE LENSES READING GLASSES READINESS TO LEARN?YES LEARNING PREFERENCES?NO LEARNING CAPABILITIES PRESENT?YES EMOTIONAL BARRIERS?NO SPECIAL DEVICES?YES :CANE PARTS FABRICATOR NEEDED?NO PAIN CLINIC PFS, CLERGY, PUBLIC HEALTH REFERRALS WAS THE PROVIDER NOTIFIED OF ANY PERTINENT INFO? N/A HAS THE PATIENT BEEN EDUCATED REGARDING HIS/HER PLAN OF CARE?YES HAS THE PATIENT BEEN EDUCATED REGARDING PAIN, THE RISK FOR PAIN, THE IMPORTANCE OF EFFECTIVE PAIN MANAGEMENT, AND THE PAIN ASSESSMENT PROCESS?YES PLEASE DOCUMENT ANY ADDTIONAL DETAILS. ORIENTED TO [facility] LATEX QUESTIONNAIRE LATEX ALLERGY : HAVE YOU EVER DEVELOPED ANY TYPE OF REACTION AFTER HANDLING LATEX PRODUCTS SUCH RUBBER GLOVES, CONDOMS, DIAPHRAGMS, BALLOONS, SOCKS, OR UNDERWEAR?NO LATEX ALLERGY : HAVE YOU EVER DEVELOPED ANY TYPE OF REACTION DURING OR AFTER DENTAL APPOINTMENT, VAGINAL/RECTAL EXAMINATION, SURGICAL PROCEDURE, OR ANY OTHER EXPOSURE?NO LATEX RISK : HAVE YOU EVER HAD ANY DIFFICULTY BREATHING OR HIVES AFTER EATING OR HANDLING ANY FRUITS, OR VEGETABLES; SUCH KIWI, BANANAS, STONE FRUITS, OR CHESTNUTSNO LATEX RISK : DO YOU HAVE A PREVIOUS PERSONAL HISTORY OF MORE THAN NINE SURGERIES, SPINA BIFIDA, OR REPEATED CATHERIZATIONS? NO LATEX RISK : ARE YOU FREQUENTLY EXPOSED TO LATEX PRODUCTS IN YOUR OCCUPATION?NO DATE ASKED : 02/04/2019 CAFFEINE CAFFEINE USE?YES HOW OFTEN AND HOW MUCH? 2 CUPS PER DAY ADVANCE DIRECTIVE ADVANCE DIRECTIVE DISCUSSED WITH PATIENT:YES HCP IVETH RODRIGUES [phone] [facility] STATUS: . 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 REVIEWED WITH PATIENT 9/28/18 1023 JSREVIEWED WITH PATIENT 01/15/18 0904 LASREVIEWED WITH PATIENT 04/02/18 0919 JSREVIEWED WITH PT 08/05/18 0923 BV09/09/18 REVIEWED WITH PT. ADREVIWED WITH PATIENT 01/20/19 0848 BVREVIEWED WITH PATIENT 12/12/18 1025 LASREVIEWED WITH PATIENT 11/12/18 0954 NLJ09/22/18 REVIEWED WITH PT. AD. HOSPITALIZATION/MAJOR DIAGNOSTIC PROCEDURE SURGERIES SEPSIS - BLOOD 04/2018 REVIEW OF SYSTEMS REVIEWED BY: PROVIDER: KAYLEE DOBBINS . CONSTITUTIONAL: ANY CHANGE IN YOUR MEDICAL CONDITION? NO . CHILLS NO . FEVER NO . INFECTION: DO YOU HAVE NEW INFECTIONS? NO . DO YOU HAVE HISTORY OF MRSA? NO . MUSCULOSKELETAL: ANY NEW PATTERNS OF PAIN OR NUMBNESS? NO . GASTROENTEROLOGY: ANY NEW CHANGE IN BOWEL CONTROL? NO . GENITOURINARY: ANY NEW CHANGE IN BLADDER CONTROL? NO . IS THERE A CHANCE YOU COULD BE ? NO . HEMATOLOGY/LYMPH: DO YOU TAKE ANY BLOOD THINNERS? (FOR EXAMPLE- COUMADIN, PLAVIX, AGGRENOX, PLATEL, PRADAXA, OR XARELTO) NO . WHEN WAS YOUR LAST DOSE? DATE: TIME: . NEUROLOGY: HAVE YOU FALLEN IN THE PAST 12 MONTHS? NO . ANY NEW EXTREMITY NUMBNESS OR WEAKNESS? NO . CARDIOLOGY: DO YOU HAVE A PACEMAKER OR DEFIBRILLATOR? NO . RESPIRATORY: HAVE YOU BEEN SICK IN THE PAST WEEK? NO . FEVER NO . FLU LIKE SYMPTOMS? NO . COUGH NO . INTEGUMENTARY: DO YOU HAVE ANY RASHES OR OPEN SORES? NO . ALLERGIC/IMMUNO: ARE YOU ALLERGIC TO IV DYE? NO . ANY NEW ALLERGIES? NO . PSYCHIATRIC: DO YOU HAVE THOUGHTS OF HURTING YOURSELF OR SOMEONE ELSE? NO . ARE YOU ABUSED, NEGLECTED, OR IN AN UNSAFE ENVIRONMENT? NO . ENDOCRINOLOGY: ARE YOU DIABETIC? YES, MANAGING WITH DIET AND ORAL MEDS . OTHER: DO YOU NEED ANY PRESCRIPTIONS? NO . IF YES, PLEASE LIST: ____ . ANY NEW PROBLEMS WITH YOUR MEDICATIONS? NO . WHEN DID YOU LAST EAT? ____ . WHEN DID YOU LAST DRINK? ____ . WHAT DID YOU LAST DRINK? ____ . NAME OF PERSON DRIVING YOU HOME? ____ . DO YOU HAVE ANY OTHER QUESTIONS OR CONCERNS NO . VITAL SIGNS WT 253.4 LBS, HT 65 IN, BMI 42.16 INDEX, BP 135/56 MM HG, HR 60 /MIN, RR 18 /MIN, TEMP 95.9 F, OXYGEN SAT % 96, SAFE IN ENV? (Y/N) Y, REVIEWED BY: [facility]. EXAMINATION GENERAL EXAMINATION: GENERAL AWAKE,ALERT ,PLEAASANT . PSYCH AFFECT NORMAL . LUNGS: LUNG GRAY ARE CLEAR TO AUSCULTATION BILATERALLY. GOOD MOVEMENT OF AIR . HEART: S1, S2 IN A REGULAR RATE AND RHYTHM. NO SIGNIFICANT MURMURS, RUBS OR GALLOPS NOTED . LUMBAR SACRAL SPINEPALPATION:TENDER OVER BILAT. L4/5-L5/S1 LUMBAR FACETS WITH FACET LOADING.. DIAGNOSTIC TESTS REVIEWED MRI L/S SPINE-10/14/18. ASSESSMENTS SPONDYLOSIS OF LUMBOSACRAL REGION WITHOUT MYELOPATHY OR RADICULOPATHY - M47.817 (PRIMARY) TREATMENT SPONDYLOSIS OF LUMBOSACRAL REGION WITHOUT MYELOPATHY OR RADICULOPATHY NOTES: RIGHT L4/5-L5/S1 RF. PREVENTIVE MEDICINE PAIN CLINIC TEACHING: THE PATIENT HAS BEEN EDUCATED REGARDING HIS/HER PLAN OF CARE : EDUCATED PT REGARDING RADIOFREQUENCY PROCEDURE, REVIEWED PRE-PROCEDURE INSTRUCTIONS AND DISTRIBUTED PAPERWORK TO PT. [facility] PROCEDURE CODES FA211 ESTABILISHED PATIENT [facility] CHARGE DISPOSITION & COMMUNICATION FOLLOW UP 5 WEEKS POST (REASON: RIGHT L4/5-L5/S1 RF) ELECTRONICALLY SIGNED BY SHILPI LOONEY ON 02/19/2019 AT 10:04 AM EST DISCLAIMER : THIS IS A VISIT SUMMARY EXTRACTED FROM THE [employer] CHART. IT IS NOT A COPY OF THE [employer] PROGRESS NOTE. SIDDHARTHA
== END ==
LOC: M PAIN 09:00
PROVIDERS: ATTEND Nurse Practitioner Family
DX: M47.817 Spondylosis without myelopathy or radiculopathy, lumbosacral region (principal); G89.29 Other chronic pain; I10 Essential (primary) hypertension; E11.9 Type 2 diabetes mellitus without complications; Z87.891 Personal history of nicotine dependence; Z91.013 Allergy to seafood; E66.01 Morbid (severe) obesity due to excess calories; Z68.41 Body mass index [BMI] 40.0-44.9, adult; Z79.899 Other long term (current) drug therapy

== ENCOUNTER → 2019-04-08 | Outpatient (CLI) | payer MEDICARE, OTHER ==
[~2019-04-08] MED LIST changes: +BUPIVACAINE HCL 0.25% 30 ML VIAL As Ordered ONE; -FELO5TAB PO; +FELO5TAB26 PO; -GLIM2TAB2 PO; +GLIM2TAB4 PO; +ISOVUE-M 300 61% 15ML VIAL (Q9967) As Ordered ONE; +LIDOCAINE 1% SDV INJ 30 ML VIAL As Ordered ONE; +OMEP1CAP73 PO; -OMEP20CA4 PO; +TRIAMCINOLONE ACETONIDE SUSP 40 MG/ML VIAL (J3301) As Ordered ONE
--- NOTE | 2019-04-08 13:48 | REP ---
Partial lumbar spine series: Three views . History: Injection procedure for pain. 44 seconds of fluoroscopy time is reported. Findings: A sequence of three fluoroscopically obtained last image hold procedural spot radiographs of the lumbar spine document needle position and contrast injection associated with injection procedure. Electronically Signed by Porfirio Porter MD 04/08/2019 01:40 P
--- NOTE | 2019-04-16 01:13 | ECWPNPC ---
PATIENT NAME: ANT DIGGS : 1950 GENDER: FEMALE VISIT DATE: 04/08/2019 DISCHARGE DATE: 04/08/19 1320 VISIT LOCKED DATE TIME: PHYSICIAN: KUNAL MCCARTHY MD RESOURCE: KUNAL MCCARTHY MD REASON FOR APPOINTMENT 1. RIGHT L4/5-L5/S1 RF HISTORY OF PRESENT ILLNESS HISTORY OF PRESENT ILLNESS: PAIN THE PATIENT DESCRIBES THE PAIN... FALL RISK SCREENING: SCREENING :NO FALLS REPORTED IN THE LAST YEAR CURRENT MEDICATIONS TAKING OMEPRAZOLE 20 MG CAPSULE DELAYED RELEASE 1 CAPSULE ORALLY ONCE A DAY, NOTES: 0500 TAKING GLIMEPIRIDE 4 MG TABLET 2 TABLET ORALLY DAILY, NOTES: 04/07/19@0700 TAKING GABAPENTIN 300 MG CAPSULE 1 CAPSULE ORALLY TWICE DAILY, NOTES: 0500 TAKING ATORVASTATIN CALCIUM 10 MG TABLET 1 TABLET ORALLY BEFORE BEDTIME, NOTES: 04/07/19@1900 TAKING LABETALOL HCL 200 MG TABLET 1 TABLET ORALLY TWICE A DAY, NOTES: 0500 TAKING VALSARTAN-HYDROCHLOROTHIAZIDE 320-25 MG TABLET 1 TABLET ORALLY ONCE A DAY, NOTES: 0500 DISCONTINUED MELOXICAM 7.5 MG TABLET 1 TABLET ORALLY BID DISCONTINUED LOSARTAN POTASSIUM 100 MG TABLET 1 TABLET ORALLY BEFORE BEDTIME DISCONTINUED FELODIPINE ER 5 MG TABLET EXTENDED RELEASE 24 HOUR 1 TABLET ORALLY BEFORE BEDTIME DISCONTINUED TIZANIDINE HCL 4 MG TABLET 1 TABLET ORALLY BID DISCONTINUED ATENOLOL 25 MG TABLET 1 TABLET ORALLY ONCE A DAY DISCONTINUED PRILOSEC 20 MG CAPSULE DELAYED RELEASE 1 CAPSULE ORALLY ONCE A DAY DISCONTINUED TRAMADOL HCL 50 MG TABLET 1 TO 2 TAB ORALLY Q6H PRN MDD2 MEDICATION LIST REVIEWED AND RECONCILED WITH THE PATIENT PAST MEDICAL HISTORY HYPERTENSION HIGH CHOLESTEROL DIABETES ARTHRITIS SEPSIS - BLOOD SPONDYLOSIS OF THORACIC AND LUMBAR REGION CARPAL TUNNEL SYNDROME BILATERAL BILATERAL CATARACTS FLUID ON LEFT OTHER CHRONIC PAIN TREMORS ALLERGIES SHRIMP (DIAGNOSTIC): ANAPHYLAXIS - ALLERGY - ONSET DATE 09/23/2018 SURGICAL HISTORY HYSTERECTOMY 1987 SINUS RIGHT - BLOCKAGE 2016 RIGHT CARPAL TUNNEL SURGERY 2017 LEFT CARPAL TUNNEL SURGERY 2017 COLONOSCOPY WITH POLYP REMOVAL 2012 BILATERAL CATARACT REMOVAL WITH LENS IMPLANTS 2018 FAMILY HISTORY FATHER: 64 YRS, DIAGNOSED WITH UNSPECIFIED HEART DISEASE MOTHER: 63 YRS, UNSPECIFIED CEREBRAL ARTERY OCCLUSION WITH CEREBRAL INFARCTION 1 SON(S) , 2 DAUGHTER(S) - HEALTHY. SEVERAL SIBLINGS WITH HEART DISEASE AND CANCER - PT HAS 19 SIBLINGS TOTAL\\NSTATES DAUGHTER HAS CHRONIC BACK PAIN WELL. SOCIAL HISTORY GENERAL: TOBACCO USE ARE YOU A:FORMER SMOKER HOW LONG HAS IT BEEN SINCE YOU LAST SMOKED?> 10 YEARS EDUCATION LEVEL OF EDUCATION:HIGH SCHOOL 9TH GRADE DIET: REGULAR, CARBOHYDRATE CONTROLLED. LANGUAGE LANGUAGES SPOKEN: CA[place] ISLANDER DOMESTIC VIOLENCE DO YOU FEEL SAFE IN YOUR ENVIRONMENT?YES NEW PATIENT PAIN DIARY PATIENT DESCRIBES PAIN :ACHING, HAVE IT ALL THE TIME RECREATIONAL DRUG USE DRUG USE?NO EXERCISE: NO REGULAR EXERCISE. LEARNING BARRIERS / SPECIAL NEEDS BARRIERS TO LEARNING?NO HEARING IMPAIRED?NO VISION IMPAIRED?YES COGNITIVELY IMPAIRED?NO :CORRECTIVE LENSES READING GLASSES READINESS TO LEARN?YES LEARNING PREFERENCES?NO LEARNING CAPABILITIES PRESENT?YES EMOTIONAL BARRIERS?NO SPECIAL DEVICES?YES :CANE KNUCKLE BENDER NEEDED?NO PAIN CLINIC PFS, CLERGY, PUBLIC HEALTH REFERRALS WAS THE PROVIDER NOTIFIED OF ANY PERTINENT INFO? N/A HAS THE PATIENT BEEN EDUCATED REGARDING HIS/HER PLAN OF CARE?YES HAS THE PATIENT BEEN EDUCATED REGARDING PAIN, THE RISK FOR PAIN, THE IMPORTANCE OF EFFECTIVE PAIN MANAGEMENT, AND THE PAIN ASSESSMENT PROCESS?YES PLEASE DOCUMENT ANY ADDTIONAL DETAILS. ORIENTED TO [facility] LATEX QUESTIONNAIRE LATEX ALLERGY : HAVE YOU EVER DEVELOPED ANY TYPE OF REACTION AFTER HANDLING LATEX PRODUCTS SUCH RUBBER GLOVES, CONDOMS, DIAPHRAGMS, BALLOONS, SOCKS, OR UNDERWEAR?NO LATEX ALLERGY : HAVE YOU EVER DEVELOPED ANY TYPE OF REACTION DURING OR AFTER DENTAL APPOINTMENT, VAGINAL/RECTAL EXAMINATION, SURGICAL PROCEDURE, OR ANY OTHER EXPOSURE?NO DATE ASKED : 02/04/2019 LATEX RISK : HAVE YOU EVER HAD ANY DIFFICULTY BREATHING OR HIVES AFTER EATING OR HANDLING ANY FRUITS, OR VEGETABLES; SUCH KIWI, BANANAS, STONE FRUITS, OR CHESTNUTSNO LATEX RISK : DO YOU HAVE A PREVIOUS PERSONAL HISTORY OF MORE THAN NINE SURGERIES, SPINA BIFIDA, OR REPEATED CATHERIZATIONS? NO LATEX RISK : ARE YOU FREQUENTLY EXPOSED TO LATEX PRODUCTS IN YOUR OCCUPATION?NO CAFFEINE CAFFEINE USE?YES HOW OFTEN AND HOW MUCH? 2 CUPS PER DAY ADVANCE DIRECTIVE ADVANCE DIRECTIVE DISCUSSED WITH PATIENT:YES HCP IVETH RODRIGUES [phone] ORIENTAL ORTHODOX ORIENTAL ORTHODOX ORIENTAL ORTHODOX MARITAL STATUS: . 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 REVIEWED WITH PATIENT 12/27/17 1023 JSREVIEWED WITH PATIENT 01/15/18 0904 LASREVIEWED WITH PATIENT 04/02/18 0919 JSREVIEWED WITH PT 08/05/18 0923 BV09/09/18 REVIEWED WITH PT. ADREVIWED WITH PATIENT 01/20/19 0848 BVREVIEWED WITH PATIENT 12/12/18 1025 LASREVIEWED WITH PATIENT 11/12/18 0954 NLJ09/22/18 REVIEWED WITH PTPRE PROCEDURE PHONE CALL COMPLETED 04/03/19 9604 NLJ. HOSPITALIZATION/MAJOR DIAGNOSTIC PROCEDURE SURGERIES SEPSIS - BLOOD 04/2018 REVIEW OF SYSTEMS REVIEWED BY: PROVIDER: . CONSTITUTIONAL: ANY CHANGE IN YOUR MEDICAL CONDITION? NO . CHILLS NO . FEVER NO . INFECTION: DO YOU HAVE NEW INFECTIONS? NO . DO YOU HAVE HISTORY OF MRSA? NO . MUSCULOSKELETAL: ANY NEW PATTERNS OF PAIN OR NUMBNESS? NO . GASTROENTEROLOGY: ANY NEW CHANGE IN BOWEL CONTROL? NO . GENITOURINARY: ANY NEW CHANGE IN BLADDER CONTROL? NO . IS THERE A CHANCE YOU COULD BE ? NO . HEMATOLOGY/LYMPH: DO YOU TAKE ANY BLOOD THINNERS? (FOR EXAMPLE- COUMADIN, PLAVIX, AGGRENOX, PLATEL, PRADAXA, OR XARELTO) NO . WHEN WAS YOUR LAST DOSE? DATE: TIME: . NEUROLOGY: HAVE YOU FALLEN IN THE PAST 12 MONTHS? NO . ANY NEW EXTREMITY NUMBNESS OR WEAKNESS? NO . CARDIOLOGY: DO YOU HAVE A PACEMAKER OR DEFIBRILLATOR? NO . RESPIRATORY: HAVE YOU BEEN SICK IN THE PAST WEEK? NO . FEVER NO . FLU LIKE SYMPTOMS? NO . COUGH NO . INTEGUMENTARY: DO YOU HAVE ANY RASHES OR OPEN SORES? NO . ALLERGIC/IMMUNO: ARE YOU ALLERGIC TO IV DYE? NO . ANY NEW ALLERGIES? NO . PSYCHIATRIC: DO YOU HAVE THOUGHTS OF HURTING YOURSELF OR SOMEONE ELSE? NO . ARE YOU ABUSED, NEGLECTED, OR IN AN UNSAFE ENVIRONMENT? NO . ENDOCRINOLOGY: ARE YOU DIABETIC? YES . OTHER: DO YOU NEED ANY PRESCRIPTIONS? NO . IF YES, PLEASE LIST: ____ . ANY NEW PROBLEMS WITH YOUR MEDICATIONS? NO . WHEN DID YOU LAST EAT? ____04/07/19 . WHEN DID YOU LAST DRINK? ____04/07/19 . WHAT DID YOU LAST DRINK? ____WATER . NAME OF PERSON DRIVING YOU HOME? ____STEVEN . DO YOU HAVE ANY OTHER QUESTIONS OR CONCERNS NO . VITAL SIGNS WT 252.2 LBS, HT 65 IN, BMI 41.96 INDEX, BP 127/57 MM HG, HR 60 /MIN, RR 18 /MIN, TEMP 97.5 F, OXYGEN SAT % 96%, SAFE IN ENV? (Y/N) YES, NA INITIALS SD 09:47, REVIEWED BY: VD. ASSESSMENTS SPONDYLOSIS WITHOUT MYELOPATHY OR RADICULOPATHY, LUMBAR REGION - M47.816 (PRIMARY) SPONDYLOSIS OF LUMBOSACRAL REGION WITHOUT MYELOPATHY OR RADICULOPATHY - M47.817 TREATMENT SPONDYLOSIS OF LUMBOSACRAL REGION WITHOUT MYELOPATHY OR RADICULOPATHY SMC FACET BLOCK (PAIN)[id number] PROCEDURES PN RADIOFREQUENCY PRE PROCEDURE DIAGNOSES 1. LUMBAR SPONDYLOSIS. 2. LUMBOSACRAL SPONDYLOSIS POST PROCEDURE DIAGNOSES 1. LUMBAR SPONDYLOSIS. 2. LUMBOSACRAL SPONDYLOSIS PROCEDURE RIGHT L4-L5 AND RIGHT L5-S1 LUMBAR FACET RADIOFREQUENCY SURGEON DR. KUNAL MCCARTHY STRIP STAMP STRAIGHTENER NONE ANESTHESIA LOCAL PRE PROCEDURE REPORT THE PATIENT HAS HISTORY OF CHRONIC LOW BACK PAIN. I EVALUATED THE PATIENT AND REVIEWED THE CHART. I WENT OVER THE RISKS, ALTERNATIVES, AND BENEFITS ASSOCIATED WITH THIS PROCEDURE. THE PATIENT WOULD LIKE TO PROCEED AND GIVES CONSENT TO PERFORM THE PROCEDURE. THE PATIENT DENIES UNEXPLAINABLE WEIGHT LOSS, FEVER, CHILLS, OR NEW CHANGES IN URINARY OR BOWEL CONTROL DESCRIPTION OF PROCEDURE THE PATIENT WAS BROUGHT TO THE PROCEDURE ROOM AND PLACED IN THE PRONE POSITION. THE LUMBOSACRAL AREA WAS CLEANED WITH CHLORAPREP SOLUTION AND DRAPED ASEPTICALLY. THE PROCEDURE WAS DONE UNDER STERILE CONDITIONS. I CHECKED LATERALITY AND THE LEVEL WHERE THE PROCEDURE WAS GOING TO BE PERFORMED WITH THE PATIENT AND THE SUPPORTING STAFF AT THE MOMENT OF THE TIME OUT IN THE PROCEDURE ROOM. UNDER FLUOROSCOPIC GUIDANCE, TARGETS WERE SELECTED AT THE INTERSECTION OF THE RIGHT TRANSVERSE PROCESS OF L4, L5 AND ALA OF S1 WITH ITS RESPECTIVE SUPERIOR ARTICULAR PROCESS. LIDOCAINE WAS USED TO NUMB THE SKIN AND THE SUBCUTANEOUS TISSUE BELOW IT. RADIOFREQUENCY NEEDLES 22-GAUGE 15 CM LONG WITH 10 MM ACTIVE CURVE TIP WERE ADVANCED UNDER FLUOROSCOPIC GUIDANCE AND FOLLOWING PATIENT FEEDBACK UNTIL THE TARGET AREA WAS REACHED. POSITION OF THE NEEDLES WAS VERIFIED WITH AP AND LATERAL VIEWS. AFTER PROPER POSITION OF THE NEEDLE WAS ACHIEVED, WE WORKED WITH THE RIGHT SELECTED MEDIAN BRANCHES OF L3, L4 AND THE DORSAL RAMI OF L5. WE MEASURED THE CORRESPONDING IMPEDANCES, SENSORY STIMULATION AND MOTOR RESPONSES INDICATED IN THE RADIOFREQUENCY WORKSHEET. POSITION OF THE NEEDLES WAS VERIFIED AGAIN WITH AP AND LATERAL VIEWS. LIDOCAINE 1%, 2 ML, WAS INJECTED AT EACH LEVEL. RADIOFREQUENCY WAS DONE AT EACH LEVEL AT 80 DEGREES FOR 90 SECONDS. AFTER RADIOFREQUENCY WAS DONE, THE PATIENT RECEIVED BUPIVACAINE 0.125% 1 CC WITH KENALOG 5 MG AT EACH SITE. THERE WAS NO EVIDENCE OF BLOOD, PARESTHESIA OR CEREBROSPINAL FLUID DURING THE PROCEDURE. THE PATIENT WAS SENT TO THE RECOVERY ROOM. THE PATIENT WAS MOVING THE EXTREMITIES AND DOING WELL. THERE WAS NO COMPLICATION DURING THE PROCEDURE. FLUOROSCOPY TIME WAS 44 SECONDS POST PROCEDURE NOTE THE PATIENT WILL BE SEEN IN A FOLLOW UP IN THE NEXT FEW WEEKS. I AM LOOKING FOR LONG LASTING PAIN RELIEF WITH THIS PROCEDURE. INSTRUCTIONS WERE GIVEN, QUESTIONS WERE ANSWERED, AND THE PATIENT EXPRESSED UNDERSTANDING AND AGREES WITH THE PLAN. I, TATY NARVAEZ, DOCUMENTED THE ABOVE INFORMATION ACTING A SCRIBE FOR DR. MCCARTHY. I HAVE REVIEWED THE ABOVE DOCUMENT, WRITTEN BY TATY NARVAEZ SCRIBKeira AND I VERIFY THAT IT IS ACCURATE. PROCEDURE CODES 39757 DESTROY LUMB/SAC FACET JNT, MODIFIERS: RT 18685 DESTROY L/S FACET JNT ADDL, MODIFIERS: RT 6045F RADXPS IN END [id number] PXD DISPOSITION & COMMUNICATION FOLLOW UP 3 WEEKS ELECTRONICALLY SIGNED BY KUNAL MCCARTHY MD, MD ON 04/15/2019 AT 10:56 AM EST DISCLAIMER : THIS IS A VISIT SUMMARY EXTRACTED FROM THE [employer] CHART. IT IS NOT A COPY OF THE [employer] PROGRESS NOTE. MTDD
== END ==
LOC: M PAIN 10:00
PROVIDERS: ATTEND Anesthesiology
DX: M47.816 Spondylosis without myelopathy or radiculopathy, lumbar region (principal); M47.817 Spondylosis without myelopathy or radiculopathy, lumbosacral region; I10 Essential (primary) hypertension; E11.9 Type 2 diabetes mellitus without complications; R25.1 Tremor, unspecified; Z87.891 Personal history of nicotine dependence; Z91.013 Allergy to seafood; E66.01 Morbid (severe) obesity due to excess calories; Z68.41 Body mass index [BMI] 40.0-44.9, adult; Z79.899 Other long term (current) drug therapy
CPT/HCPCS: 64635; 64636; J3301; Q9967

== ENCOUNTER → 2019-04-30 | Outpatient (CLI) | payer MEDICARE, OTHER ==
[~2019-04-30] MED LIST changes: -BUPIVACAINE HCL 0.25% 30 ML VIAL As Ordered ONE; -ISOVUE-M 300 61% 15ML VIAL (Q9967) As Ordered ONE; -LIDOCAINE 1% SDV INJ 30 ML VIAL As Ordered ONE; -TRIAMCINOLONE ACETONIDE SUSP 40 MG/ML VIAL (J3301) As Ordered ONE
--- NOTE | 2019-05-02 03:56 | ECWPNPC ---
PATIENT NAME: ANT DIGGS : 1950 GENDER: FEMALE VISIT DATE: 04/30/2019 DISCHARGE DATE: 04/30/19 0954 VISIT LOCKED DATE TIME: PHYSICIAN: KAYLEE ARMSTRONG RESOURCE: KAYLEE ARMSTRONG REASON FOR APPOINTMENT 1. POST RF HISTORY OF PRESENT ILLNESS GENERAL: HERE FOR POST PROCEDURE F/U.HAD RF L4/5-L5/S1-RIGHT LUMBAR ON 04/08/2019.REPORTING 100% IMPROVEMENT IN PAIN THAT CONTINUES TODAY.RATING PAIN VAS 0/10. -. FALL RISK SCREENING: SCREENING :NO FALLS REPORTED IN THE LAST YEAR PAIN SCREENING: PATIENT HAS A COMPLAINT OF ACUTE OR CHRONIC PAIN :NO PT STATES THAT SHE HAS BEEN PAIN FREE SINCE RECEIVING THE INJECTION. NURSING NOTE: -. HISTORY OF PRESENT ILLNESS: PAIN THE PATIENT DESCRIBES THE PAIN... CURRENT MEDICATIONS TAKING OMEPRAZOLE 20 MG CAPSULE DELAYED RELEASE 1 CAPSULE ORALLY ONCE A DAY, NOTES: 0500 TAKING GLIMEPIRIDE 4 MG TABLET 2 TABLET ORALLY DAILY, NOTES: 04/07/19@0700 TAKING GABAPENTIN 300 MG CAPSULE 1 CAPSULE ORALLY TWICE DAILY, NOTES: 0500 TAKING ATORVASTATIN CALCIUM 10 MG TABLET 1 TABLET ORALLY BEFORE BEDTIME, NOTES: 04/07/19@1900 TAKING LABETALOL HCL 200 MG TABLET 1 TABLET ORALLY TWICE A DAY, NOTES: 0500 TAKING VALSARTAN-HYDROCHLOROTHIAZIDE 320-25 MG TABLET 1 TABLET ORALLY ONCE A DAY, NOTES: 0500 MEDICATION LIST REVIEWED AND RECONCILED WITH THE PATIENT PAST MEDICAL HISTORY HYPERTENSION HIGH CHOLESTEROL DIABETES ARTHRITIS SEPSIS - BLOOD SPONDYLOSIS OF THORACIC AND LUMBAR REGION CARPAL TUNNEL SYNDROME BILATERAL BILATERAL CATARACTS FLUID ON LEFT OTHER CHRONIC PAIN TREMORS ALLERGIES SHRIMP (DIAGNOSTIC): ANAPHYLAXIS - ALLERGY - ONSET DATE 09/23/2018 SURGICAL HISTORY HYSTERECTOMY 1987 SINUS RIGHT - BLOCKAGE 2016 RIGHT CARPAL TUNNEL SURGERY 2017 LEFT CARPAL TUNNEL SURGERY 2017 COLONOSCOPY WITH POLYP REMOVAL 2011 BILATERAL CATARACT REMOVAL WITH LENS IMPLANTS 2018 FAMILY HISTORY FATHER: 64 YRS, DIAGNOSED WITH UNSPECIFIED HEART DISEASE MOTHER: 63 YRS, UNSPECIFIED CEREBRAL ARTERY OCCLUSION WITH CEREBRAL INFARCTION 1 SON(S) , 2 DAUGHTER(S) - HEALTHY. SEVERAL SIBLINGS WITH HEART DISEASE AND CANCER - PT HAS 19 SIBLINGS TOTAL\\NSTATES DAUGHTER HAS CHRONIC BACK PAIN WELL. SOCIAL HISTORY GENERAL: TOBACCO USE ARE YOU A:FORMER SMOKER HOW LONG HAS IT BEEN SINCE YOU LAST SMOKED?> 10 YEARS EDUCATION LEVEL OF EDUCATION:HIGH SCHOOL 9TH GRADE DIET: REGULAR, CARBOHYDRATE CONTROLLED. LANGUAGE LANGUAGES SPOKEN: TAIWANESE DOMESTIC VIOLENCE DO YOU FEEL SAFE IN YOUR ENVIRONMENT?YES NEW PATIENT PAIN DIARY PATIENT DESCRIBES PAIN :ACHING, HAVE IT ALL THE TIME RECREATIONAL DRUG USE DRUG USE?NO EXERCISE: NO REGULAR EXERCISE. LEARNING BARRIERS / SPECIAL NEEDS BARRIERS TO LEARNING?NO HEARING IMPAIRED?NO VISION IMPAIRED?YES COGNITIVELY IMPAIRED?NO :CORRECTIVE LENSES READING GLASSES READINESS TO LEARN?YES LEARNING PREFERENCES?NO LEARNING CAPABILITIES PRESENT?YES EMOTIONAL BARRIERS?NO SPECIAL DEVICES?YES :CANE VICE PROVOST NEEDED?NO PAIN CLINIC PFS, CLERGY, PUBLIC HEALTH REFERRALS WAS THE PROVIDER NOTIFIED OF ANY PERTINENT INFO? N/A HAS THE PATIENT BEEN EDUCATED REGARDING HIS/HER PLAN OF CARE?YES HAS THE PATIENT BEEN EDUCATED REGARDING PAIN, THE RISK FOR PAIN, THE IMPORTANCE OF EFFECTIVE PAIN MANAGEMENT, AND THE PAIN ASSESSMENT PROCESS?YES PLEASE DOCUMENT ANY ADDTIONAL DETAILS. ORIENTED TO [facility] LATEX QUESTIONNAIRE LATEX ALLERGY : HAVE YOU EVER DEVELOPED ANY TYPE OF REACTION AFTER HANDLING LATEX PRODUCTS SUCH RUBBER GLOVES, CONDOMS, DIAPHRAGMS, BALLOONS, SOCKS, OR UNDERWEAR?NO LATEX ALLERGY : HAVE YOU EVER DEVELOPED ANY TYPE OF REACTION DURING OR AFTER DENTAL APPOINTMENT, VAGINAL/RECTAL EXAMINATION, SURGICAL PROCEDURE, OR ANY OTHER EXPOSURE?NO DATE ASKED : 02/04/2019 LATEX RISK : HAVE YOU EVER HAD ANY DIFFICULTY BREATHING OR HIVES AFTER EATING OR HANDLING ANY FRUITS, OR VEGETABLES; SUCH KIWI, BANANAS, STONE FRUITS, OR CHESTNUTSNO LATEX RISK : DO YOU HAVE A PREVIOUS PERSONAL HISTORY OF MORE THAN NINE SURGERIES, SPINA BIFIDA, OR REPEATED CATHERIZATIONS? NO LATEX RISK : ARE YOU FREQUENTLY EXPOSED TO LATEX PRODUCTS IN YOUR OCCUPATION?NO CAFFEINE CAFFEINE USE?YES HOW OFTEN AND HOW MUCH? 2 CUPS PER DAY ADVANCE DIRECTIVE ADVANCE DIRECTIVE DISCUSSED WITH PATIENT:YES HCP IVETH RODRIGUES [phone] [facility] STATUS: . 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 REVIEWED WITH PATIENT 12/27/17 1023 JSREVIEWED WITH PATIENT 01/15/18 0904 LASREVIEWED WITH PATIENT 04/02/18 0919 JSREVIEWED WITH PT 08/05/18 0923 BV09/09/18 REVIEWED WITH PT. CHARLINEEVIWED WITH PATIENT 01/20/19 0848 BVREVIEWED WITH PATIENT 12/12/18 1025 LASREVIEWED WITH PATIENT 11/12/18 0954 NL09/22/18 REVIEWED WITH PTPRE PROCEDURE PHONE CALL COMPLETED 04/03/19 7129 NLJ. HOSPITALIZATION/MAJOR DIAGNOSTIC PROCEDURE SURGERIES SEPSIS - BLOOD 04/2018 REVIEW OF SYSTEMS REVIEWED BY: PROVIDER: KAYLEE DOBBINS . CONSTITUTIONAL: ANY CHANGE IN YOUR MEDICAL CONDITION? NO . CHILLS NO . FEVER NO . INFECTION: DO YOU HAVE NEW INFECTIONS? NO . DO YOU HAVE HISTORY OF MRSA? NO . MUSCULOSKELETAL: ANY NEW PATTERNS OF PAIN OR NUMBNESS? NO . GASTROENTEROLOGY: ANY NEW CHANGE IN BOWEL CONTROL? NO . GENITOURINARY: ANY NEW CHANGE IN BLADDER CONTROL? NO . IS THERE A CHANCE YOU COULD BE ? NO . HEMATOLOGY/LYMPH: DO YOU TAKE ANY BLOOD THINNERS? (FOR EXAMPLE- COUMADIN, PLAVIX, AGGRENOX, PLATEL, PRADAXA, OR XARELTO) NO . WHEN WAS YOUR LAST DOSE? DATE: TIME: . NEUROLOGY: HAVE YOU FALLEN IN THE PAST 12 MONTHS? NO . ANY NEW EXTREMITY NUMBNESS OR WEAKNESS? NO . CARDIOLOGY: DO YOU HAVE A PACEMAKER OR DEFIBRILLATOR? NO . RESPIRATORY: HAVE YOU BEEN SICK IN THE PAST WEEK? NO . FEVER NO . FLU LIKE SYMPTOMS? NO . COUGH NO . INTEGUMENTARY: DO YOU HAVE ANY RASHES OR OPEN SORES? NO . ALLERGIC/IMMUNO: ARE YOU ALLERGIC TO IV DYE? NO . ANY NEW ALLERGIES? NO . PSYCHIATRIC: DO YOU HAVE THOUGHTS OF HURTING YOURSELF OR SOMEONE ELSE? NO . ARE YOU ABUSED, NEGLECTED, OR IN AN UNSAFE ENVIRONMENT? NO . ENDOCRINOLOGY: ARE YOU DIABETIC? YES . OTHER: DO YOU NEED ANY PRESCRIPTIONS? NO . IF YES, PLEASE LIST: ____ . ANY NEW PROBLEMS WITH YOUR MEDICATIONS? NO . WHEN DID YOU LAST EAT? ____ . WHEN DID YOU LAST DRINK? ____ . WHAT DID YOU LAST DRINK? ____ . NAME OF PERSON DRIVING YOU HOME? ____ . DO YOU HAVE ANY OTHER QUESTIONS OR CONCERNS NO . VITAL SIGNS WT 251.2 LBS, HT 65 IN, BMI 41.80 INDEX, BP 125/59 MM HG, HR 94 /MIN, RR 20 /MIN, TEMP 98.1 F, OXYGEN SAT % 94, SAFE IN ENV? (Y/N) YES, PAIN SCALE 0A. EDDIE PITTM[place]. EXAMINATION GENERAL EXAMINATION: GENERALAWAKE,ALERT ,PLEAASANT . PSYCHAFFECT NORMAL . LUNGS:LUNG GRAY ARE CLEAR TO AUSCULTATION BILATERALLY. GOOD MOVEMENT OF AIR . HEART:S1, S2 IN A REGULAR RATE AND RHYTHM. NO SIGNIFICANT MURMURS, RUBS OR GALLOPS NOTED . ASSESSMENTS SPONDYLOSIS OF LUMBOSACRAL REGION WITHOUT MYELOPATHY OR RADICULOPATHY - M47.817 (PRIMARY) TREATMENT SPONDYLOSIS OF LUMBOSACRAL REGION WITHOUT MYELOPATHY OR RADICULOPATHY NOTES: INSTRUCTED TO WALK FOR 10 MINUTES EVERY OTHER DAY TO STRENGTHEN PARASPINAL MUSCLES AND INCREASE LONGEVITY OF PROCEDURE. PROCEDURE CODES FA211 ESTABILISHED PATIENT [facility] CHARGE DISPOSITION & COMMUNICATION FOLLOW UP 2 MONTHS ELECTRONICALLY SIGNED BY SHILPI LOONEY ON 05/01/2019 AT 09:03 AM EST DISCLAIMER : THIS IS A VISIT SUMMARY EXTRACTED FROM THE [employer] CHART. IT IS NOT A COPY OF THE [employer] PROGRESS NOTE. SIDDHARTHA
== END ==
LOC: M PAIN 09:15
PROVIDERS: ATTEND Nurse Practitioner Family
DX: M47.817 Spondylosis without myelopathy or radiculopathy, lumbosacral region (principal); I10 Essential (primary) hypertension; E11.9 Type 2 diabetes mellitus without complications; R25.1 Tremor, unspecified; Z87.891 Personal history of nicotine dependence; Z91.013 Allergy to seafood; E66.01 Morbid (severe) obesity due to excess calories; Z68.41 Body mass index [BMI] 40.0-44.9, adult; Z79.84 Long term (current) use of oral hypoglycemic drugs; Z79.899 Other long term (current) drug therapy

== ENCOUNTER → 2023-03-19 | Outpatient (CLI) | payer MEDICARE, OTHER ==
[~2023-03-19] MED LIST changes: -LISI20TA19 PO; +LISI20TA35 PO; +METHACHOLINE KIT INH ONE
== END ==
LOC: M CARPUL 08:21
PROVIDERS: ATTEND Internal Medicine Pulmonary Disease
DX: R06.02 Shortness of breath (principal)
CPT/HCPCS: 94070; 95070; J7674